=== PATIENT | male | born 1955 | race Caucasian/White ===

== ENCOUNTER 2024-08-11 13:37 | Emergency (ER) | payer OTHER ==
[~2024-08-11] VITALS: Ht 177.8 cm; Wt 85.9 kg
--- NOTE | 2024-08-11 14:36 | DVH ---
EXAM: XY L HAND 3V XRAY CLINICAL HISTORY: nail in hand COMPARISON: None TECHNIQUE: XY L HAND 3V XRAY Findings/Impression: 4 views of the left hand. There is no evidence of an acute fracture, dislocation, blastic, or lytic lesions. Metallic nail overlying the proximal thenar soft tissues. No definite evidence of osseous penetratio n. No superficial soft tissue abnormalities.
[2024-08-11 14:40] VITALS: BP 114/78; PULSE 90; RESP 14; TEMP 98.7; O2SAT 97
[2024-08-11] MEDS ORDERED: ACET500T58 PO (15:35)
[2024-08-11] MEDS ORDERED: CIPR-173 PO (15:35)
--- NOTE | 2024-08-11 15:35 | ED.PDOC ---
Musculoskeletal HPI Comments 68 year old M presents for left hand FB s/p using nail gun. Last tetanus: 1 year ago Denies numbness/tingling or loss ROM Chief Complaint: Foreign Body Time Seen by MD: 14:12 Primary Care Provider: none Reviewed Notes: Nurses Notes, Medications, Allergies Allergies: Coded Allergies: NO KNOWN ALLERGIES (Unverified , 08/11/24) Home Meds Active Scripts Acetaminophen (Acetaminophen) 500 Mg Tab, 500 MG PO Q6HP PRN for 5 Days, #20 TAB 0 Refills Prov:MADHURI RODRIGUEZ OPTOMETRIC COORDINATOR 08/11/24 Ciprofloxacin Hcl (Cipro) 500 Mg Tab, 1 TAB PO BID for 5 Days, #10 TAB 0 Refills Prov:MADHURI RODRIGUEZ OPTOMETRIC COORDINATOR 08/11/24 Information Source: Patient Mode of Arrival: Ambulatory All Other Systems: Reviewed and Negative (per hpi) Physical Exam General Appearance: No Apparent Distress, Normal HEENT: Normal ENT Inspection, Pharynx Normal, TMs Normal Neck: Full Range of Motion, Non-Tender, Normal, Normal Inspection Respiratory: Chest Non-Tender, Lungs Clear, No Accessory Muscle Use, No Respiratory Distress, Normal Breath Sounds Cardiovascular: No Edema, No JVD, No Murmur, No Gallop, Normal Peripheral Pulses, Regular Rate/Rhythm Breast Exam: Deferred Gastrointestinal: No Organomegaly, Non Tender, No Pulsatile Mass, Normal Bowel Sounds, Soft Genitalia: Deferred Pelvic: Deferred Rectal: Deferred Extremities: No calf tenderness, Normal capillary refill, Normal inspection, Normal range of motion, Non-tender, No pedal edema Musculoskeletal : Location: Left Extremity Location: Hand (visible fb. distal sensation intact. 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 Was a procedure done?: Yes Sedation Sedation?: No Foreign Body Removal Foreign body in: Skin Anesthetic: Lidocaine Prep: Prep, Saline, Betadine, Irrigation Procedure: Removed Informed consent obtained: Yes Risks/benefits/alt described: Yes Differential Diagnosis EXT Differential Diagnosis: Other X-Ray, Labs, Meds, VS Vital Signs Date Time Temp Pulse Resp B/P (MAP) Pulse Ox O2 Delivery O2 Flow Rate FiO2 08/11/24 14:40 90 14 97 Room Air 08/11/24 14:40 98.7 90 14 114/78 (90) 97 98.7 08/11/24 14:06 98.7 90 14 114/78 (90) 97 98.7 PATIENT: LOTTIE OMALLEYCCT: [id number]: [id number] : 1955 LOC: ER ROOM / BED: / AGE / SEX: 68 / M ADM STATUS: REG ER SERVICE 1406 ORDERING PHYSICIAN: MADHURI RODRIGUEZ NP PROCEDURE(s): LHAN - L HAND 3V XRAY REASON: nail in hand ORDER NUMBER(s): [id number], ACCESSION NUMBER(s): [id number] EXAM: XY L HAND 3V XRAY CLINICAL HISTORY: nail in hand COMPARISON: None TECHNIQUE: XY L HAND 3V XRAY Findings/Impression: 4 views of the left hand. There is no evidence of an acute fracture, dislocation, blastic, or lytic lesions. Metallic nail overlying the proximal thenar soft tissues. No definite evidence of osseous penetration. No superficial soft tissue abnormalities. ATED BY: UNIQUE ZAVALA DO DICTATED DATE/TIME: 08/11/241433 SIGNED BY: UNIQUE ZAVALA DO SIGNED DATE/TIME: 08/11/241433 X-Ray, Labs, Meds, VS Comment There is no evidence of an acute fracture, dislocation, blastic, or lytic lesions. Metallic nail overlying the proximal thenar soft tissues. No definite evidence of osseous penetration. No superficial soft tissue abnormalities. Removed FB. Tolerated well Abx rx On reevaluation, patient had symptomatic improvement. Patient is stable for discharge at this time. External notes reviewed. Test results and diagnostic imaging interpreted. All diagnostic findings, discharge care, education and instructions provided Follow-up with PCP in 2 to 3 days Patient verbalized understanding and agreed to treatment plan Vital signs stable, afebrile, no acute distress noted Patient ambulatory with strong steady gait Advised to return precautions for any new or worsening symptoms, return to ER immediately for re-evaluation Patient is aware that the purpose of this visit was for an acute medical emergency requiring emergent stabilization. Chronic conditions, including malignancies have not been ruled out. Patient is instructed to follow up with PCP as directed and discharge instructions for continued care and workup. If unable to arrange follow-up, patient is to return to the emergency department for reassessment. Patient (parent or legal guardian if applicable) was given verbal and written discharge instructions and acknowledges understanding. Time of 1ST Reevaluation: 15:30 Reevaluation 1ST: Improved Patient Education/Counseling: Diagnosis, Treatment Family Education/Counseling: Diagnosis, Treatment Departure 1 Departure Time of Disposition: 15:34 Impression: Primary Impression: Nail wound of dorsum of hand Disposition: HOME / SELF CARE / HOMELESS Condition: Stable e-Prescriptions Acetaminophen (Acetaminophen) 500 Mg Tab 500 MG PO Q6HP PRN for 5 Days, #20 TAB 0 Refills Prov: MADHURI RODRIGUEZ NP 08/11/24 Ciprofloxacin Hcl (Cipro) 500 Mg Tab 1 TAB PO BID for 5 Days, #10 TAB 0 Refills Prov: MADHURI RODRIGUEZ NP 08/11/24 Critical Care Note Critical Care Time?: No Stability Stability form required: No Heart Score Heart Score: Heart Score Response (Comments) Value History N/A 0 EKG N/A 0 Age N/A 0 Risk Factors N/A 0 Troponin N/A 0 Total 0 MADHURI RODRIGUEZ NP Aug 11, 2024 15:35
[2024-08-11] MEDS ORDERED: BACITRACIN TOP OINT 1 UD PKG TOP ONE (15:45)
== END 2024-08-11 15:40 | disposition home or self-care (01) ==
LOC: ER 13:37
DX: S61.309A Unspecified open wound of unspecified finger with damage to nail, initial encounter (principal); Z79.899 Other long term (current) drug therapy; X58.XXXA Exposure to other specified factors, initial encounter; Y93.89 Activity, other specified; Y92.89 Other specified places as the place of occurrence of the external cause; Y99.8 Other external cause status
CPT/HCPCS: 73130